=== PATIENT | female | born 1995 | race African-American/Black ===

== ENCOUNTER 2018-04-07 16:46 | Emergency (ER) | payer OTHER ==
[~2018-04-07] VITALS: Ht 170.2 cm; Wt 104.3 kg
[~2018-04-07 16:46] MED LIST: CIPRO500 MG PO; DIFLUCAN200 MG PO; NOHOMEMEDICATIONS
[2018-04-07 17:04] VITALS: BP 132/74
== END 2018-04-07 17:06 | disposition home or self-care (01) ==
LOC: ER 16:46
DX: Z77.098 Contact with and (suspected) exposure to other hazardous, chiefly nonmedicinal, chemicals (principal); F17.210 Nicotine dependence, cigarettes, uncomplicated

== ENCOUNTER 2019-12-06 10:35 | Emergency (ER) | payer OTHER ==
[~2019-12-06] VITALS: Ht 170.2 cm; Wt 104.3 kg
[2019-12-06] MEDS ORDERED: ZPAK PO (11:11)
[2019-12-06 12:07] VITALS: BP 126/69
== END 2019-12-06 12:07 | disposition home or self-care (01) ==
LOC: ER 10:35
DX: R05 Cough (principal); F17.210 Nicotine dependence, cigarettes, uncomplicated; Z20.828 Contact with and (suspected) exposure to other viral communicable diseases